=== PATIENT | male | born 1970 | race Caucasian/White ===

== ENCOUNTER 2020-03-05 18:03 | Emergency (ER) | payer OTHER ==
[~2020-03-05] VITALS: Ht 177.8 cm; Wt 63.0 kg
--- NOTE | 2020-03-05 18:15 | NUR ---
"Fell off skateboard 4H ago hurt my left hip and right arm" Patient a/ox4, breathing even and unlabored, no sob noted, Kept comfortable. Needs attended.
[2020-03-05] MEDS ORDERED: TDAP [DIPH/PERTUSSIS/TET] 0.5 ML VIAL IM ONE ×2 (19:07→19:30)
--- NOTE | 2020-03-05 19:20 | NUR ---
SPLINT APPLIED ON LEFT ARM WITH SLING.Patient discharged to home in stable condition. Written and verbal after care instructions given. Patient verbalizes understanding of instruction.
[2020-03-05 19:24] VITALS: BP 115/77
== END 2020-03-05 19:25 | disposition home or self-care (01) ==
LOC: ER 18:09
DX: S52.122A Displaced fracture of head of left radius, initial encounter for closed fracture (principal); S70.02XA Contusion of left hip, initial encounter; S80.212A Abrasion, left knee, initial encounter; V00.131A Fall from skateboard, initial encounter; Y93.51 Activity, roller skating (inline) and skateboarding; Y92.89 Other specified places as the place of occurrence of the external cause; Y99.8 Other external cause status
CPT/HCPCS: 73080-TC; 73502; 90715